=== PATIENT | male | born 1970 | race Caucasian/White ===

== ENCOUNTER 2018-01-15 12:03 | Emergency (ER) | payer SELFPAY | END 2018-01-15 14:33 | disposition home or self-care (01) | LOC: E/R 12:03 → FTE 14:33 | DX: L98.0 Pyogenic granuloma (principal); Z87.891 Personal history of nicotine dependence | CPT/HCPCS: 11420; 88305; 99283-25 ==

== ENCOUNTER 2018-10-31 09:22 | Emergency (ER) | payer SELFPAY ==
[2018-10-31] MEDS: SOD CHLORIDE 0.9% 1,000 ML IV (09:48)
[2018-10-31] MEDS: ONDANSETRON 4 MG INJ IV (09:50)
[2018-10-31] MEDS: HYDROmorphONE 1 MG/ML SYG IV (09:51)
[2018-10-31] MEDS: DIPHTH/TET/ACEL PERTUSS (ADULT) 0.5 ML VIAL IM* (09:52)
[2018-10-31 09:58] LABS: ADD MAN DIFF? NO
[2018-10-31 10:03] LABS: WHITE BLOOD COUNT 7.9 10^3/ul (4.8-10.8)
[2018-10-31 10:03] LABS: BASOPHILS % 0.4 % (0.0-2.0); EOSINOPHILS # 0.1 10^3/ul (0.0-0.5); EOSINOPHILS % 1.3 % (0.0-7.0); HEMATOCRIT 29.1 % (42.0-52.0); HEMOGLOBIN 9.2 g/dl (14.0-18.0); LYMPHOCYTES # 4.1 10^3/ul (0.8-2.9); LYMPHOCYTES % 52.7 % (15.0-51.0); MEAN CORPUSCULAR HEMOGLOBIN 24.5 pg (29.0-33.0); MEAN CORPUSCULAR HGB CONC 31.6 g/dl (32.0-37.0); MEAN CORPUSCULAR VOLUME 77.6 fl (82.0-101.0); MEAN PLATELET VOLUME 9.9 fl (7.4-10.4); MONOCYTE # 0.9 10^3/ul (0.3-0.9); MONOCYTES % 10.8 % (0.0-11.0); NEUTROPHIL # 2.7 10^3/ul (1.6-7.5); NEUTROPHILS % 34.4 % (39.0-77.0); PLATELET COUNT 111 10^3/UL (140-415); RED BLOOD COUNT 3.75 10^6/ul (4.70-6.10); RED CELL DISTRIBUTION WIDTH 18.1 % (11.5-14.5)
[2018-10-31 10:20] LABS: ANION GAP 17 (5-13); BLOOD UREA NITROGEN 4 mg/dl (7-20); CALCIUM 8.2 mg/dl (8.4-10.2); CARBON DIOXIDE 26 mmol/L (21-31); CHLORIDE 100 mmol/L (97-110); Estimated GFR > 60 mL/min (>60); GLUCOSE 171 mg/dl (70-220); POTASSIUM 3.6 mmol/L (3.5-5.1); SODIUM 143 mmol/L (135-144)
[2018-10-31] MEDS: CEFAZOLIN 2 GM/50 ML (PMX) 50 ML IVPB (10:20)
[2018-10-31 10:21] LABS: INR 1.11; PROTIME 14.4 Sec (11.9-14.9); PT RATIO 1.1
[2018-10-31 10:22] LABS: PARTIAL THROMBOPLASTIN TIME 30.7 Sec (23.0-35.0)
== END 2018-10-31 12:26 | disposition short-term general hospital (02) ==
LOC: E/R 09:22
DX: S61.411A Laceration without foreign body of right hand, initial encounter (principal); S66.821A Laceration of other specified muscles, fascia and tendons at wrist and hand level, right hand, initial encounter; M79.641 Pain in right hand; W27.0XXA Contact with workbench tool, initial encounter; Y92.9 Unspecified place or not applicable; Z23 Encounter for immunization; Z87.891 Personal history of nicotine dependence
CPT/HCPCS: 36415; 73130-RT; 80048; 85025; 85610; 85730; 90471; 90715; 93005; 96374; 96375; 99285-25